=== PATIENT | female | born 1990 | race African-American/Black ===

== ENCOUNTER 2016-11-28 11:24 | Emergency (ER) | payer SELFPAY ==
[~2016-11-28] VITALS: Ht 170.2 cm; Wt 74.8 kg
[~2016-11-28 11:24] MED LIST: NAPR250T2 PO; OXYC-323 PO
[2016-11-28 11:30] VITALS: BP 121/74
[2016-11-28] MEDS ORDERED: DIPHTH,PERTUSS(ACELL),TET TOX 0.5 ML DISP.SYRIN. VAX IM ONE (11:30)
[2016-11-28] MEDS ORDERED: NEOMY/BACITR/POLYMYXIN OINT PACKET. TP ONE (11:30)
[2016-11-28] MEDS ORDERED: NAPROXEN 500 MG TABLET PO STA (11:30)
[2016-11-28] MEDS ORDERED: HYDROcodone/APAP 5/325MG 1 TAB TABLET PO ONE (11:30)
--- NOTE | 2016-11-28 12:00 | RAD ---
Exam performed:3 views right elbow and right hand 3 views. Indication: Right hand and Elbow pain after wrestling with brother last night. Date of Service:11/28/16 Comparison: None available Right hand 3 views findings: PA, oblique lateral radiographs of the hand reveal the osseous structures to be intact and well aligned. The joint spaces are well-preserved. The articular margins are smooth. No soft tissue swelling or foreign bodies detected. Impression: 1. No acute abnormality seen in the right hand End impression 3 views right elbow findings: AP, oblique and lateral radiographs of the elbow reveal the osseous structures to be intact and well aligned. The joint space is well-preserved. Evidence of fracture or dislocation is not seen. Impression: 1. No acute findings seen in the right elbow.
[2016-11-28] MEDS ORDERED: NAPR500T8 PO (12:33)
--- NOTE | 2016-11-28 12:33 | PHYS DOC ---
Past Medical History Past Medical History: No Pertinent History, Depression, Other Additional Past Medical Histor: PTSD Past Surgical History: No Surgical History Additional Past Surgical Histo: finger surgery Alcohol Use: Occasionally Drug Use: Marijuana Adult General Chief Complaint Chief Complaint: UPPER EXTREMITY INJURY HPI HPI Patient is a 26 year old female with no significant medical history who presents with right elbow pain that began yesterday while wrestling with the older brother. Patient denies any known injury. Patient is also complaining of right middle finger pain that began one or 2 weeks ago while wrestling with the brother. Review of Systems Review of Systems Constitutional: Denies fever or chills [] Eyes: Denies change in visual acuity, redness, or eye pain [] HENT: Denies nasal congestion or sore throat [] Musculoskeletal: Right elbow pain and right middle finger pain Integument: Denies rash or skin lesions [] Neurologic: Denies headache, focal weakness or sensory changes [] Endocrine: Denies polyuria or polydipsia [] Current Medications Current Medications Current Medications Medications (Trade) Dose Ordered Sig/Natanael Start Time Stop Time Status Last Admin Dose Admin Acetaminophen/ Hydrocodone Bitart (Lortab 5/325) 1 tab 1X ONCE 11/28/16 11:30 11/28/16 11:35 DC 11/28/16 11:52 1 TAB Diphtheria/ Tetanus/Acell Pertussis (Boostrix) 0.5 ml ONCE ONCE 11/28/16 11:30 11/28/16 11:35 DC Naproxen (Naprosyn) 500 mg 1X STAT 11/28/16 11:30 11/28/16 11:35 DC 11/28/16 11:52 500 MG Neomycin/ Polymyxin/ Bacitracin (Triple Antibiotic Ointment) 1 pkt 1X ONCE 11/28/16 11:30 11/28/16 11:35 DC 11/28/16 11:52 1 PKT Allergies Allergies Allergies Coded Allergies Type Severity Reaction Last Updated Verified No Known Drug Allergies 02/06/14 No Physical Exam Physical Exam Constitutional: Well developed, well nourished, no acute distress, non-toxic appearance. [] HENT: Normocephalic, atraumatic, bilateral external ears normal, oropharynx moist, no oral exudates, nose normal. [] Eyes: PERRLA, EOMI, conjunctiva normal, no discharge. [] Skin: Warm, dry, no erythema, no rash. [] Back: No tenderness, no CVA tenderness. [] Extremities: Right elbow with bruising on the medial aspect. Small amount of soft tissue swelling on the dorsal part of the right elbow. Tenderness diffusely on the dorsal part of the right elbow. Full range of motion to the right elbow though patient states is painful. Adequate plantar flexion of the subluxation of the right forearm. Right middle finger with no obvious deformity. Tenderness on palpation of the right middle finger PIP joint. Adequate flexion and extension of the right middle finger MIP PIP and DIP joints. Adequate radial sensation to the right middle finger. Cap refill less than 2 seconds the right middle finger. Sensation intact to the right middle finger. Neurologic: Alert and oriented X 3, normal motor function, normal sensory function, no focal deficits noted. [] Psychologic: Affect normal, judgement normal, mood normal. [] Current Patient Data Vital Signs Vital Signs Date Time Temp Pulse Resp B/P (MAP) Pulse Ox O2 Delivery O2 Flow Rate FiO2 11/28/16 11:52 16 Room Air 11/28/16 11:30 98.2 86 121/74 (90) 97 98.2 EKG EKG [] Radiology/Procedures Radiology/Procedures []PROCEDURE: ELBOW RIGHT 3V; HAND RIGHT 3V Exam performed:3 views right elbow and right hand 3 views. Indication: Right hand and Elbow pain after wrestling with brother last night. Date of Service:11/28/16 Comparison: None available Right hand 3 views findings: PA, oblique lateral radiographs of the hand reveal the osseous structures to be intact and well aligned. The joint spaces are well-preserved. The articular margins are smooth. No soft tissue swelling or foreign bodies detected. Impression: 1. No acute abnormality seen in the right hand End impression 3 views right elbow findings: AP, oblique and lateral radiographs of the elbow reveal the osseous structures to be intact and well aligned. The joint space is well-preserved. Evidence of fracture or dislocation is not seen. Impression: 1. No acute findings seen in the right elbow. DICTATED and SIGNED BY: HALEY SIEGEL MD DATE: 11/28/16 6718 CC: KARLI RODRIGUEZ APRN; NO PCP; CHRIS CRAIN MD ~ Course & Med Decision Making Course & Med Decision Making Pertinent Labs and Imaging studies reviewed. (See chart for details) Patient is in the ED with complaints of right middle finger pain and right elbow pain after wrestling. X-rays of the right middle finger and right elbow interpreted by radiologist are negative for any acute findings. Patient has right elbow and right middle finger sprains. She did have some bruising on the medial aspect of the right elbow. She was instructed to apply Neosporin to the area. Tetanus is up-to-date. Ice elevation encouraged if the affected extremity. Discharged with naproxen and provided orthopedic doctor for follow- up. Dragon Disclaimer Dragon Disclaimer This electronic medical record was generated, in whole or in part, using a voice recognition dictation system. Departure Departure Impression: Primary Impression: Sprain of right elbow Additional Impressions: Sprain of right middle finger Bruising Disposition: 01 HOME, SELF-CARE Condition: STABLE Referrals: NO PCP (PCP) SIMRAN LARSEN MD Follow-up with the provided orthopedic doctor in 1-2 weeks as needed Patient Instructions: Joint Sprain Additional Instructions: You were seen for right elbow and right middle finger sprain. Ice and elevate the affected extremities. Try and dangle the right elbow down, avoid cradling it because it might freeze up and become hard to move. Take the prescribed medicines as needed. Apply Neosporin to the bruised area on the elbow. Scripts Naproxen (NAPROXEN) 500 Mg Tablet.dr 1 TAB PO BID, #60 TAB 2 Refills Prov: KARLI RORDIGUEZ APRN 11/28/16 Problem Qualifiers Primary Impression: Sprain of right elbow Encounter type: initial encounter Qualified Codes: S53.401A - Unspecified sprain of right elbow, initial encounter Additional Impressions: Sprain of right middle finger Encounter type: initial encounter Sprain of finger site: interphalangeal joint Qualified Codes: S63.632A - Sprain of interphalangeal joint of right middle finger, initial encounter KARLI RODRIGUEZ APRN November 28, 2016 12:33
== END 2016-11-28 12:44 | disposition home or self-care (01) ==
LOC: ER 11:24
DX: S53.401A Unspecified sprain of right elbow, initial encounter (principal); S63.632A Sprain of interphalangeal joint of right middle finger, initial encounter; F32.9 Major depressive disorder, single episode, unspecified; F43.10 Post-traumatic stress disorder, unspecified; F12.10 Cannabis abuse, uncomplicated; X58.XXXA Exposure to other specified factors, initial encounter; Y93.72 Activity, wrestling; Y92.89 Other specified places as the place of occurrence of the external cause; Y99.8 Other external cause status
CPT/HCPCS: 73080; 73130; 99284

== ENCOUNTER 2017-01-03 20:55 | Emergency (ER) | payer SELFPAY ==
[~2017-01-03] VITALS: Ht 162.6 cm; Wt 74.8 kg
[~2017-01-03 20:55] MED LIST changes: +NAPR500T8 PO
[2017-01-03 20:58] VITALS: BP 134/67
== END 2017-01-03 21:20 | disposition left against medical advice (07) ==
LOC: ER 20:55
DX: O20.9 Hemorrhage in early pregnancy, unspecified (principal); O99.341 Other mental disorders complicating pregnancy, first trimester; F32.9 Major depressive disorder, single episode, unspecified; O99.331 Smoking (tobacco) complicating pregnancy, first trimester; O99.321 Drug use complicating pregnancy, first trimester; F12.10 Cannabis abuse, uncomplicated; Z3A.08 8 weeks gestation of pregnancy; Z53.21 Procedure and treatment not carried out due to patient leaving prior to being seen by health care provider
CPT/HCPCS: 81025

== ENCOUNTER 2017-02-08 21:16 | Emergency (ER) | payer SELFPAY ==
[~2017-02-08] VITALS: Ht 170.2 cm; Wt 77.1 kg
[2017-02-08 22:28] LABS: BILIRUBIN,URINE NEGATIVE (NEG); GLUCOSE,URINE NEGATIVE (NEG); NITRITE,URINE NEGATIVE (NEG); PH,URINE 6.5; PROTEIN,URINE NEGATIVE (NEG-TRACE); UROBILINOGEN,URINE 0.2 mg/dL (0.2 mg/dL)
[2017-02-08 22:45] LABS: BACTERIA,URINE 0 /HPF (0-FEW); RBC,URINE 0 /HPF (0-2)
[2017-02-08 22:46] LABS: SQUAMOUS EPITHELIAL CELL,UR MOD /LPF
[2017-02-08 22:47] LABS: BASO % 1 % (0-3); EOS % 1 % (0-3); HEMATOCRIT 32.6 % (36.0-47.0); HEMOGLOBIN 10.9 g/dL (12.0-15.5); LYMPH # 2.3 x10^3/uL (1.0-4.8); LYMPH % 29 % (24-48); MEAN CORPUSCULAR HEMOGLOBIN 31 pg (25-35); MEAN CORPUSCULAR HGB CONC 34 g/dL (31-37); MEAN CORPUSCULAR VOLUME 91 fL (79-100); MONO % 6 % (0-9); NEUT % 65 % (31-73); PLATELET COUNT 199 x10^3/uL (140-400); RED BLOOD COUNT 3.58 x10^6/uL (3.50-5.40); RED CELL DISTRIBUTION WIDTH 18.1 % (11.5-14.5); WHITE BLOOD COUNT 8.1 x10^3/uL (4.0-11.0)
--- NOTE | 2017-02-08 22:55 | PHYS DOC ---
Past Medical History Past Medical History: No Pertinent History, Depression, Other Additional Past Medical Histor: PTSD Past Surgical History: No Surgical History Additional Past Surgical Histo: finger surgery Alcohol Use: Occasionally Drug Use: Marijuana Adult General Chief Complaint Chief Complaint: VAGINAL BLEEDING HPI HPI Patient is a 27 year old female who presents with vaginal bleeding. Her LMP is 11/15/16 and is 12 weeks by dates. She is a G4, P3, LC3. States the spotting started yesterday at 1900 p.m. No ultrasound, no care. She denies any loss of tissue. No burning or blood in her urine. No fever or chills. Review of Systems Review of Systems Constitutional: Denies fever or chills Eyes: Denies change in visual acuity, redness, or eye pain HENT: Denies nasal congestion or sore throat Respiratory: Denies cough or shortness of breath Cardiovascular: No chest pain GI: Denies abdominal pain, nausea, vomiting, bloody stools or diarrhea : Denies dysuria or hematuria; vaginal spotting Musculoskeletal: Denies back pain or joint pain Integument: Denies rash or skin lesions Neurologic: Denies headache, focal weakness or sensory changes Allergies Allergies Allergies Coded Allergies Type Severity Reaction Last Updated Verified No Known Drug Allergies 02/06/14 No Physical Exam Physical Exam Constitutional: Well developed, well nourished, no acute distress, non-toxic appearance. HENT: Normocephalic, atraumatic, bilateral external ears normal, oropharynx moist, no oral exudates, nose normal. Eyes: PERRLA, EOMI, conjunctiva normal, no discharge. Neck: Normal range of motion, no tenderness, supple, no stridor. Cardiovascular:Heart rate regular rhythm, no murmur Lungs & Thorax: Bilateral breath sounds clear to auscultation Abdomen: Bowel sounds normal, soft, no tenderness, no masses, no pulsatile masses. Skin: Warm, dry, no erythema, no rash. Back: No tenderness, no CVA tenderness. Extremities: No tenderness, no cyanosis, no clubbing, ROM intact, no edema. Neurologic: Alert and oriented X 3, normal motor function, normal sensory function, no focal deficits noted. Psychologic: Affect normal, judgement normal, mood normal. Current Patient Data Vital Signs Vital Signs Date Time Temp Pulse Resp B/P (MAP) Pulse Ox O2 Delivery O2 Flow Rate FiO2 7/22/17 23:00 84 18 117/76 (90) 97 Room Air 02/08/17 21:52 98.4 98.4 Lab Values Laboratory Tests Test 02/08/17 21:15 02/08/17 21:53 02/08/17 22:25 POC Urine HCG, Qualitative Hcg positive (Negative) Urine Collection Type Unknown Urine Color Yellow Urine Clarity Clear Urine pH 6.5 Urine Specific [place] 1.010 Urine Protein Negative mg/dL (NEG-TRACE) Urine Glucose (UA) Negative mg/dL (NEG) Urine Ketones (Stick) Negative mg/dL (NEG) Urine Blood Negative (NEG) Urine Nitrite Negative (NEG) Urine Bilirubin Negative (NEG) Urine Urobilinogen Dipstick 0.2 mg/dL (0.2 mg/dL) Urine Leukocyte Esterase Trace (NEG) Urine RBC 0 /HPF (0-2) Urine WBC 5-10 /HPF (0-4) Urine Squamous Epithelial Cells Mod /LPF Urine Bacteria 0 /HPF (0-FEW) Urine Mucus Mod /LPF White Blood Count 8.1 x10^3/uL (4.0-11.0) Red Blood Count 3.58 x10^6/uL (3.50-5.40) Hemoglobin 10.9 g/dL (12.0-15.5) L Hematocrit 32.6 % (36.0-47.0) L Mean Corpuscular Volume 91 fL (79-100) Mean Corpuscular Hemoglobin 31 pg (25-35) Mean Corpuscular Hemoglobin Concent 34 g/dL (31-37) Red Cell Distribution Width 18.1 % (11.5-14.5) H Platelet Count 199 x10^3/uL (140-400) Neutrophils (%) (Auto) 65 % (31-73) Lymphocytes (%) (Auto) 29 % (24-48) Monocytes (%) (Auto) 6 % (0-9) Eosinophils (%) (Auto) 1 % (0-3) Basophils (%) (Auto) 1 % (0-3) Neutrophils # (Auto) 5.2 x10^3uL (1.8-7.7) Lymphocytes # (Auto) 2.3 x10^3/uL (1.0-4.8) Monocytes # (Auto) 0.5 x10^3/uL (0.0-1.1) Eosinophils # (Auto) 0.1 x10^3/uL (0.0-0.7) Basophils # (Auto) 0.0 x10^3/uL (0.0-0.2) Maternal Serum HCG Beta Subunit 28940 mIU/mL (0-5) H Laboratory Tests 02/08/17 22:25 Radiology/Procedures Radiology/Procedures [facility] [address] [place] [address] IMAGING REPORT Signed PATIENT: RAFAEL GREENFIELD ACCOUNT: [id number] : 1990 LOCATION: ER AGE: 27 SEX: F EXAM STATUS: PRE ER ORD. PHYSICIAN: MADIE ALARCON MD REASON: vag bleeding PROCEDURE: OB < 14 WKS Obstetrical ultrasound HISTORY: Vaginal spotting. FINDINGS: Uterus measures 12.1 cm longitudinal by 7.5 cm AP by 9.4 cm transverse. Gestational sac is identified. pole identified with crown-rump length of 5.3 cm which is compatible with 12 weeks 0 days. heart tones are documented with a heart rate of 1 55 bpm. Cervical length is 3.8 cm. Left maternal ovary measures 3.3 cm and is unremarkable with positive blood flow. Maternal right ovary measures 2.2 cm with positive blood flow. IMPRESSION: Single viable intrauterine is identified, with a estimated sonographic age of 12 weeks 0 days, and estimated due date of August 23, 2017. Electronically signed by: Alexandria Boles MD (02/08/2017 11:12 PM) [facility] DICTATED and SIGNED BY: ALEXANDRIA BOLES MD DATE: 02/08/17 0171 CC: MADIE ALARCON MD; NO PCP ~ Course & Med Decision Making Course & Med Decision Making Pertinent Labs and Imaging studies reviewed. (See chart for details) Attempted heart tones (she states 12 weeks) but unable to determine. Will need to have US (ordered). Blood type and cbc ordered. Quant HCG. Midnight: I was in a code and when I went back into the room she was gone. Was unable to perform Pelvic exam Dragon Disclaimer Dragon Disclaimer This electronic medical record was generated, in whole or in part, using a voice recognition dictation system. Departure Departure Impression: Primary Impression: Vaginal bleeding in Disposition: 07 AGAINST MEDICAL ADVICE Referrals: NO PCP (PCP) MADIE ALARCON MD Feb 08, 2017 22:55
[2017-02-08 23:00] VITALS: BP 117/76
--- NOTE | 2017-02-08 23:15 | RAD ---
Obstetrical ultrasound HISTORY: Vaginal spotting. FINDINGS: Uterus measures 12.1 cm longitudinal by 7.5 cm AP by 9.4 cm transverse. Gestational sac is identified. pole identified with crown-rump length of 5.3 cm which is compatible with 12 weeks 0 days. heart tones are documented with a heart rate of 1 55 bpm. Cervical length is 3.8 cm. Left maternal ovary measures 3.3 cm and is unremarkable with positive blood flow. Maternal right ovary measures 2.2 cm with positive blood flow. IMPRESSION: Single viable intrauterine is identified, with a estimated sonographic age of 12 weeks 0 days, and estimated due date of August 23, 2017. Electronically signed by: Ector Boles MD (02/08/2017 11:12 PM) [facility]
== END 2017-02-09 00:09 | disposition left against medical advice (07) ==
LOC: ER 21:16
DX: O20.9 Hemorrhage in early pregnancy, unspecified (principal); O99.321 Drug use complicating pregnancy, first trimester; F43.10 Post-traumatic stress disorder, unspecified; O99.341 Other mental disorders complicating pregnancy, first trimester; Z3A.12 12 weeks gestation of pregnancy
CPT/HCPCS: 36415; 76801; 81001; 81025; 84702; 85027; 86900; 86901; 99285-25

== ENCOUNTER 2017-02-22 04:20 | Emergency (ER) | payer SELFPAY ==
[~2017-02-22] VITALS: Ht 167.6 cm; Wt 74.8 kg
[2017-02-22 04:47] VITALS: BP 132/72
[2017-02-22 04:50] LABS: BILIRUBIN,URINE NEGATIVE (NEG); GLUCOSE,URINE NEGATIVE (NEG); NITRITE,URINE NEGATIVE (NEG); PROTEIN,URINE 100 mg/dL (NEG-TRACE)
--- NOTE | 2017-02-22 04:51 | PHYS DOC ---
Past Medical History Past Medical History: No Pertinent History, Depression, Other Additional Past Medical Histor: PTSD Past Surgical History: No Surgical History Additional Past Surgical Histo: finger surgery Alcohol Use: Occasionally Drug Use: Marijuana Adult General Chief Complaint Chief Complaint: VAGINAL BLEEDING HPI HPI Patient is a 27 year old F who presents with vaginal bleeding. Patient is approximately 14 weeks' is a middle-aged comes in with heavy vaginal bleeding that started this morning. Patient went to some lower abdominal cramping. Patient denies any nausea/vomiting/diarrhea. Patient denies any fevers. Patient denies any dysuria. Patient has no other complaints. Patient has had no care at this point. Review of Systems Review of Systems GEN: Denies fevers, chills, sweats HEENT: Denies blurred vision, sore throat CV: Denies chest pain RESP: Denies shortness of air, cough GI: Denies n/v/d : Vaginal bleeding NEURO: Denies confusion, dizziness MSK: Denies weakness, joint pain/swelling Current Medications Current Medications Current Medications Medications (Trade) Dose Ordered Sig/Natanael Start Time Stop Time Status Last Admin Dose Admin Acetaminophen (Tylenol) 1,000 mg 1X ONCE 02/22/17 06:00 02/22/17 06:01 DC 02/22/17 05:40 1,000 MG Allergies Allergies Allergies Coded Allergies Type Severity Reaction Last Updated Verified No Known Drug Allergies 02/06/14 No Physical Exam Physical Exam GEN.: No apparent distress. Alert and oriented. HEENT: Head is normocephalic, atraumatic NECK: Supple. LUNGS: CTAB. HEART: RRR, S1, S2 present. Peripheral pulses intact ABDOMEN: Soft, lower abdominal tenderness palpation. Positive bowel sounds. : Patient deferred EXTREMITIES: Without any cyanosis. NEUROLOGIC: Normal speech, normal tone PSYCHIATRIC: Normal affect, normal mood. SKIN: No ulcerations Current Patient Data Vital Signs Vital Signs Date Time Temp Pulse Resp B/P (MAP) Pulse Ox O2 Delivery O2 Flow Rate FiO2 02/22/17 04:47 98.1 106 16 132/72 (92) 98 Room Air 98.1 Lab Values Laboratory Tests Test 02/22/17 04:27 02/22/17 05:00 Urine Collection Type Unknown Urine Color Red Urine Clarity Cloudy Urine pH 6.0 Urine Specific [place] 1.025 Urine Protein 100 mg/dL (NEG-TRACE) Urine Glucose (UA) Negative mg/dL (NEG) Urine Ketones (Stick) Negative mg/dL (NEG) Urine Blood Large (NEG) Urine Nitrite Negative (NEG) Urine Bilirubin Negative (NEG) Urine Urobilinogen Dipstick 1.0 mg/dL (0.2 mg/dL) Urine Leukocyte Esterase Small (NEG) Urine RBC Tntc /HPF (0-2) Urine WBC 5-10 /HPF (0-4) Urine Squamous Epithelial Cells Mod /LPF Urine Bacteria Few /HPF (0-FEW) Urine Mucus Marked /LPF Urine Test Positive (NEG) White Blood Count 10.2 x10^3/uL (4.0-11.0) Red Blood Count 3.70 x10^6/uL (3.50-5.40) Hemoglobin 11.4 g/dL (12.0-15.5) L Hematocrit 33.4 % (36.0-47.0) L Mean Corpuscular Volume 91 fL (79-100) Mean Corpuscular Hemoglobin 31 pg (25-35) Mean Corpuscular Hemoglobin Concent 34 g/dL (31-37) Red Cell Distribution Width 17.8 % (11.5-14.5) H Platelet Count 244 x10^3/uL (140-400) Neutrophils (%) (Auto) 68 % (31-73) Lymphocytes (%) (Auto) 27 % (24-48) Monocytes (%) (Auto) 5 % (0-9) Eosinophils (%) (Auto) 0 % (0-3) Basophils (%) (Auto) 0 % (0-3) Neutrophils # (Auto) 6.9 x10^3uL (1.8-7.7) Lymphocytes # (Auto) 2.7 x10^3/uL (1.0-4.8) Monocytes # (Auto) 0.5 x10^3/uL (0.0-1.1) Eosinophils # (Auto) 0.0 x10^3/uL (0.0-0.7) Basophils # (Auto) 0.0 x10^3/uL (0.0-0.2) Maternal Serum HCG Beta Subunit 93618 mIU/mL (0-5) H Sodium Level 141 mmol/L (136-145) Potassium Level 3.6 mmol/L (3.5-5.1) Chloride Level 105 mmol/L (98-107) Carbon Dioxide Level 24 mmol/L (21-32) Anion Gap 12 (6-14) Blood Urea Nitrogen 8 mg/dL (7-20) Creatinine 0.8 mg/dL (0.6-1.0) Estimated GFR (Cockcroft-Gault) 104.9 BUN/Creatinine Ratio 10 (6-20) Glucose Level 88 mg/dL (70-99) Calcium Level 8.6 mg/dL (8.5-10.1) Total Bilirubin 0.1 mg/dL (0.2-1.0) L Aspartate Amino Transferase (AST) 16 U/L (15-37) Alanine Aminotransferase (ALT) 16 U/L (14-59) Alkaline Phosphatase 63 U/L (46-116) Total Protein 7.3 g/dL (6.4-8.2) Albumin 3.3 g/dL (3.4-5.0) L Albumin/Globulin Ratio 0.8 (1.0-1.7) L Laboratory Tests 02/22/17 05:00 Laboratory Tests 02/22/17 05:00 EKG EKG [] Radiology/Procedures Radiology/Procedures [] Course & Med Decision Making Course & Med Decision Making Pertinent Labs and Imaging studies reviewed. (See chart for details) 0609: Transitional care to Dr. De Leon who will follow-up on the ultrasound if no demise patient can be discharged home with pelvic rest and short term follow-up with [facility] IMAGING REPORT Signed PATIENT: RAFAEL GREENFIELD ACCOUNT: [id number] : 1990 LOCATION: ER AGE: 27 SEX: F EXAM STATUS: REG ER ORD. PHYSICIAN: LAUREN KAPLAN DO REASON: vag bleeding PROCEDURE: OB > 14 WKS W/TV Obstetric ultrasound HISTORY: female with vaginal bleeding. COMPARISON: Obstetric ultrasound February 08, 2017 TECHNIQUE: Transabdominal and transvaginal transducers with grayscale, M-mode Doppler and color Doppler sonography. FINDINGS: Transabdominal imaging demonstrates uterus measuring 15.1 x 9.2 x 10.9 cm with a single intrauterine fetus. heart rate 162 bpm. [place]-rump length 8.1 cm estimating sonographic gestational age 14 weeks 0 days and date of delivery August 23, 2017. Maternal ovaries not visualized. Transvaginal imaging demonstrates cervical length 4.1 cm no funneling. Fetus in cephalic position. Anterior placenta with marginal placenta previa. No subchorionic hemorrhage or retroplacental hematoma documented. Maternal ovaries not visualized due to shadowing. anatomic evaluation was not performed. Trace fluid in the cul-de-sac. IMPRESSION: Single living intrauterine with sonographic gestational age of 14 weeks 0 days. Anterior placenta with marginal placenta previa. Cervical length 4.1 cm without funneling. Electronically signed by: Andrea Garg MD (02/22/2017 6:10 AM) [facility] DICTATED and SIGNED BY: ANDREA GARG MD DATE: 02/22/17605 CC: NELL DE LEON MD; NO PCP; LAUREN KAPLAN DO ~ [] Was turned over to me awaiting ultrasound of the pelvis to evaluate intrauterine . Ultram as returned as well as a blood type which is B+ she is Rh+ is well she does not need broken. Ultrasound demonstrates a single intrauterine with a gestational age of approximately 14 weeks with significant heart tones at 162. Patient is not actively bleeding belly pain is minimum patient will be given thorough precautions for both bleeding and expectations of progressive development. Encouraging her to follow-up with [facility] in the future. Patient given instructions to use [id number] Tylenol (Zofran for nausea necessary. I reviewed her nursing notes his documentation of care as well as's vital signs and laboratory work which are really unremarkable at this time. Impression: Abdominal pain, threatened miscarriage, Disposition: [facility] follow-up PCP referral. Dragon Disclaimer Dragon Disclaimer This electronic medical record was generated, in whole or in part, using a voice recognition dictation system. Departure Departure Impression: Primary Impression: Vaginal bleeding in Additional Impression: Threatened miscarriage Disposition: 01 HOME, SELF-CARE Condition: IMPROVED Referrals: NO PCP (PCP) Patient Instructions: Threatened Miscarriage Additional Instructions: Please follow-up with your local [facility] manage the rest her . Please return for any new or increasing abdominal pain, vaginal bleeding greater than 1 pad per hour for 4-6 hours or if he get lightheaded and dizzy with a loss of blood. Please return if you have any questions or concerns about your care. Scripts Ondansetron (ZOFRAN ODT) 4 Mg Tab.rapdis 4 MG PO BID Y for NAUSEA/VOMITING for 28 Days, #56 TAB Prov: NELL DE LEON MD 02/22/17 Acetaminophen (TYLENOL) 325 Mg Tablet 1-2 TAB.CHEW PO QID, #60 TAB 2 Refills Prov: NELL DE LEON MD 02/22/17 Problem Qualifiers LAUREN KAPLAN DO Feb 22, 2017 04:50 NELL DE LEON MD Feb 22, 2017 06:31
[2017-02-22 04:54] LABS: NEG OBC UR NEG; POS OBC UR POS
[2017-02-22 05:04] LABS: BACTERIA,URINE FEW /HPF (0-FEW); RBC,URINE TNTC /HPF (0-2); SQUAMOUS EPITHELIAL CELL,UR MOD /LPF
[2017-02-22 05:19] LABS: BASO % 0 % (0-3); EOS % 0 % (0-3); HEMATOCRIT 33.4 % (36.0-47.0); HEMOGLOBIN 11.4 g/dL (12.0-15.5); LYMPH # 2.7 x10^3/uL (1.0-4.8); LYMPH % 27 % (24-48); MEAN CORPUSCULAR HEMOGLOBIN 31 pg (25-35); MEAN CORPUSCULAR HGB CONC 34 g/dL (31-37); MEAN CORPUSCULAR VOLUME 91 fL (79-100); MONO % 5 % (0-9); NEUT % 68 % (31-73); PLATELET COUNT 244 x10^3/uL (140-400); RED CELL DISTRIBUTION WIDTH 17.8 % (11.5-14.5); WHITE BLOOD COUNT 10.2 x10^3/uL (4.0-11.0)
[2017-02-22 05:26] LABS: CALCIUM 8.6 mg/dL (8.5-10.1); CREATININE 0.8 mg/dL (0.6-1.0); GFR 104.9; POTASSIUM 3.6 mmol/L (3.5-5.1)
[2017-02-22 05:33] LABS: ALBUMIN 3.3 g/dL (3.4-5.0); ALBUMIN/GLOBULIN RATIO 0.8 (1.0-1.7); TOTAL BILIRUBIN 0.1 mg/dL (0.2-1.0); TOTAL PROTEIN 7.3 g/dL (6.4-8.2)
[2017-02-22] MEDS ORDERED: ACETAMINOPHEN 500 MG TABLET PO ONE (06:00)
--- NOTE | 2017-02-22 06:13 | RAD ---
Obstetric ultrasound HISTORY: female with vaginal bleeding. COMPARISON: Obstetric ultrasound February 08, 2017 TECHNIQUE: Transabdominal and transvaginal transducers with grayscale, M-mode Doppler and color Doppler sonography. FINDINGS: Transabdominal imaging demonstrates uterus measuring 15.1 x 9.2 x 10.9 cm with a single intrauterine fetus. heart rate 162 bpm. [place]-rump length 8.1 cm estimating sonographic gestational age 14 weeks 0 days and date of delivery August 23, 2017. Maternal ovaries not visualized. Transvaginal imaging demonstrates cervical length 4.1 cm no funneling. Fetus in cephalic position. Anterior placenta with marginal placenta previa. No subchorionic hemorrhage or retroplacental hematoma documented. Maternal ovaries not visualized due to shadowing. anatomic evaluation was not performed. Trace fluid in the cul-de-sac. IMPRESSION: Single living intrauterine with sonographic gestational age of 14 weeks 0 days. Anterior placenta with marginal placenta previa. Cervical length 4.1 cm without funneling. Electronically signed by: David Garg MD (02/22/2017 6:10 AM) [facility]
[2017-02-22] MEDS ORDERED: ONDA4TAB10 PO (06:31)
[2017-02-22] MEDS ORDERED: ACET325T9 PO (06:31)
== END 2017-02-22 06:56 | disposition home or self-care (01) ==
LOC: ER 04:20
DX: O20.0 Threatened abortion (principal); O99.341 Other mental disorders complicating pregnancy, first trimester; F43.10 Post-traumatic stress disorder, unspecified; F32.9 Major depressive disorder, single episode, unspecified; O99.321 Drug use complicating pregnancy, first trimester; F12.10 Cannabis abuse, uncomplicated; Z3A.14 14 weeks gestation of pregnancy
CPT/HCPCS: 36415; 76805; 76817; 80053; 81001; 81025; 84702; 85027; 86900; 86901; 87086; 99285-25

== ENCOUNTER 2017-03-10 12:17 | Emergency (ER) | payer SELFPAY ==
[~2017-03-10] VITALS: Ht 170.2 cm; Wt 74.8 kg
[~2017-03-10 12:17] MED LIST changes: +ACET325T9 PO; +ONDA4TAB10 PO
[2017-03-10 13:32] LABS: BASO % 1 % (0-3); EOS % 1 % (0-3); HEMATOCRIT 30.9 % (36.0-47.0); HEMOGLOBIN 10.6 g/dL (12.0-15.5); LYMPH # 1.4 x10^3/uL (1.0-4.8); LYMPH % 21 % (24-48); MEAN CORPUSCULAR HEMOGLOBIN 32 pg (25-35); MEAN CORPUSCULAR HGB CONC 34 g/dL (31-37); MEAN CORPUSCULAR VOLUME 92 fL (79-100); MONO % 9 % (0-9); NEUT % 68 % (31-73); PLATELET COUNT 212 x10^3/uL (140-400); RED BLOOD COUNT 3.35 x10^6/uL (3.50-5.40); RED CELL DISTRIBUTION WIDTH 15.7 % (11.5-14.5); WHITE BLOOD COUNT 6.7 x10^3/uL (4.0-11.0)
[2017-03-10 13:39] LABS: BILIRUBIN,URINE NEGATIVE (NEG); GLUCOSE,URINE NEGATIVE (NEG); NITRITE,URINE NEGATIVE (NEG); PROTEIN,URINE NEGATIVE (NEG-TRACE)
[2017-03-10 13:43] LABS: BACTERIA,URINE 0 /HPF (0-FEW); RBC,URINE 0 /HPF (0-2); SQUAMOUS EPITHELIAL CELL,UR FEW /LPF; WBC,URINE 0 /HPF (0-4)
[2017-03-10 14:24] VITALS: BP 98/53
--- NOTE | 2017-03-10 14:29 | RAD ---
Obstetrical ultrasound, 03/10/2017: History: , bleeding Transabdominal scans were obtained. Translabial scans were also obtained for optimal demonstration of the cervix. Comparison is made to a study from 02/22/2017. There is a single intrauterine fetus in a variable orientation. The biparietal diameter measures 3.5 cm compatible with a gestational age of 16-17 weeks. This corresponds well to the other measurements and yields a sonographic EDC of 08/23/2017. This is the same EDC as established on the previous study of 02/22/2017. activity and heart motion are present. The heart rate is 162 bpm. There is an abnormal hypoechoic process present along the anterior aspect of the gestational sac and the appearance is that of a large subchorionic hemorrhage. It measures approximately 10 x 11 x 2.5 cm. The placenta lies posteriorly. Its inferior tip lies near the internal cervical os but does not cover the os. The appearance suggests a marginal placenta previa. The cervix was best demonstrated on the translabial views. The cervix measures approximately 2.9 cm in length. The endocervical canal is hypoechoic compatible with the presence of amniotic fluid and/or blood. IMPRESSION: 1. Single viable intrauterine fetus of 16-17 weeks gestational age which has demonstrated normal interval growth since previous studies. 2. Large subchorionic hemorrhage. 3. Marginal placenta previa. 4. The cervical length is now at the lower limits of normal with fluid extending into the endocervical canal.
--- NOTE | 2017-03-10 15:00 | PHYS DOC ---
Past Medical History Past Medical History: Depression, Other Additional Past Medical Histor: PTSD Past Surgical History: Other Additional Past Surgical Histo: finger surgery Alcohol Use: Occasionally Drug Use: None Adult General Chief Complaint Chief Complaint: VAGINAL BLEEDING HPI HPI Patient is a 27 year old female who presents here today secondary to vaginal bleeding. Patient is approximately 16 weeks by date. Patient was seen here on February 08 and was evaluated for vaginal bleeding at that time was found to have an IUP 14 weeks by ultrasound. Patient reports that since she's been here since been having vaginal spotting every day. She reports at 3 AM today she had some increased bleeding. Patient reports that she passed a small clot that she wasn' t sure if it was tissue or not. Patient reports that she is back to just vaginal spotting at the current time. Patient denies any abdominal discomfort at this time. Patient is 4 para 3. Patient has any hypertension diabetes liver longer kidney problems. Patient has had no abdominal or chest surgeries. Patient reports she does smoke occasional alcohol and no drugs. Patient reports that she has not had an silver recovery operator during this yet secondary to insurance reasons. Patient reports that she was here to her prior visit she started applying for her health insurance however she has not gotten approved. Patient reports that one set is approved that she will follow-up with OB. Patient denies any other symptomatology at this time. Patient has any fevers shakes chills nausea vomiting diarrhea chest pain shortness of breath cough cold rhinorrhea. Patient has a dysuria frequency or urgency. Patient's physical exam the ER was significant for mild tenderness to palpation to her periumbilical area at her uterine fundus. Patient's pelvic exam revealed closed os with a normal amount of dried blood. Patient's exam was unremarkable otherwise nontender. Patient's vital signs remained stable in the ED. Patient's heart rate has been 60-70. Patient's blood pressure is been stable. Ultrasound: Impression single viable intrauterine fetus of 16-17 weeks gestation. Large subchorionic hemorrhage. Marginal placenta previa. Review of systems: Constitutional: Denies fever or chills Eyes: Denies change in visual acuity, redness, or eye pain HENT: Denies nasal congestion or sore throat All other review systems are negative except as documented in the history of present illness portion. Physical exam: Constitutional: Well developed, well nourished, no acute distress, non-toxic appearance. HENT: Normocephalic, atraumatic, bilateral external ears normal, nose normal. Eyes: EOMI, conjunctiva normal, no discharge. Neck: Normal range of motion, no tenderness, supple, no stridor. Cardiovascular:Heart rate regular rhythm Lungs & Thorax: Bilateral breath sounds clear to auscultation no respiratory distress Abdomen: Bowel sounds normal, soft, no tenderness, no masses, no pulsatile masses. Skin: Warm, dry, no erythema, no rash. Back: No tenderness, no CVA tenderness. Extremities: No tenderness, no cyanosis, no clubbing, ROM intact, no edema. Neurologic: Alert and oriented X 3, normal motor function, normal sensory function, no focal deficits noted. Psychologic: Affect normal, judgement normal, mood normal. Assessment and plan This is a 27-year-old female who presents here today with vaginal bleeding. Patient's ultrasound was remarkable for large subchorionic hemorrhage. Patient' s marginal placenta previa. Patient is 16-17 weeks gestational age with a live IUP. I discussed the entirety of the patient's lab results and the ultrasound with the patient. I discussed the case with Dr. Kee her silver recovery operator on-call she has agreed to assist us with outpatient follow-up for this patient. Patient was instructed to call Dr. Kee's office after being discharged from here for an appointment to be seen as soon as possible for reevaluation. Patient will need to be care for her current . Patient's clinically hemodynamically stable despite for discharged home. Return precautions been reviewed with the patient. Allergies Allergies Allergies Coded Allergies Type Severity Reaction Last Updated Verified No Known Drug Allergies 02/06/14 No Current Patient Data Vital Signs Vital Signs Date Time Temp Pulse Resp B/P (MAP) Pulse Ox O2 Delivery O2 Flow Rate FiO2 03/10/17 14:24 58 16 98/53 (68) 98 Room Air 03/10/17 12:53 97.9 97.9 Lab Values Laboratory Tests Test 03/10/17 12:10 03/10/17 12:59 03/10/17 13:21 POC Urine HCG, Qualitative Hcg positive (Negative) Urine Collection Type Unknown Urine Color Nya Urine Clarity Clear Urine pH 7.0 Urine Specific [place] 1.025 Urine Protein Negative mg/dL (NEG-TRACE) Urine Glucose (UA) Negative mg/dL (NEG) Urine Ketones (Stick) Trace mg/dL (NEG) Urine Blood Negative (NEG) Urine Nitrite Negative (NEG) Urine Bilirubin Negative (NEG) Urine Urobilinogen Dipstick 1.0 mg/dL (0.2 mg/dL) Urine Leukocyte Esterase Small (NEG) Urine RBC 0 /HPF (0-2) Urine WBC 0 /HPF (0-4) Urine Squamous Epithelial Cells Few /LPF Urine Bacteria 0 /HPF (0-FEW) Urine Mucus Slight /LPF White Blood Count 6.7 x10^3/uL (4.0-11.0) Red Blood Count 3.35 x10^6/uL (3.50-5.40) L Hemoglobin 10.6 g/dL (12.0-15.5) L Hematocrit 30.9 % (36.0-47.0) L Mean Corpuscular Volume 92 fL (79-100) Mean Corpuscular Hemoglobin 32 pg (25-35) Mean Corpuscular Hemoglobin Concent 34 g/dL (31-37) Red Cell Distribution Width 15.7 % (11.5-14.5) H Platelet Count 212 x10^3/uL (140-400) Neutrophils (%) (Auto) 68 % (31-73) Lymphocytes (%) (Auto) 21 % (24-48) L Monocytes (%) (Auto) 9 % (0-9) Eosinophils (%) (Auto) 1 % (0-3) Basophils (%) (Auto) 1 % (0-3) Neutrophils # (Auto) 4.5 x10^3uL (1.8-7.7) Lymphocytes # (Auto) 1.4 x10^3/uL (1.0-4.8) Monocytes # (Auto) 0.6 x10^3/uL (0.0-1.1) Eosinophils # (Auto) 0.1 x10^3/uL (0.0-0.7) Basophils # (Auto) 0.0 x10^3/uL (0.0-0.2) Maternal Serum HCG Beta Subunit 58610 mIU/mL (0-5) H Laboratory Tests 03/10/17 13:21 EKG EKG [] Radiology/Procedures Radiology/Procedures [] Course & Med Decision Making Course & Med Decision Making Pertinent Labs and Imaging studies reviewed. (See chart for details) [] Dragon Disclaimer Dragon Disclaimer This electronic medical record was generated, in whole or in part, using a voice recognition dictation system. Departure Departure Impression: Primary Impression: Vaginal bleeding in Additional Impression: Threatened miscarriage Disposition: HOME, SELF-CARE Condition: IMPROVED Referrals: NO PCP (PCP) LI GHOSH MD Patient Instructions: Threatened Miscarriage Additional Instructions: Thank you for allowing us to participate in your care today. Followup with your primary care physician in 3 days if your symptoms do not improve. Call your Primary Doctor tomorrow and inform them of your visit today. If you do not have a primary care provider you can ask for a list of our primary care providers. Return to the emergency department you have any new or concerning findings. This should be evaluated by the primary care physician and any necessary consulting services for continued management within a few days after discharge. Return to emergency room if you have any new or concerning symptoms including but not limited to fever, chills, nausea, vomiting, intractable pain, any new rashes, chest pain, shortness of air, uncontrolled bleeding, difficulty breathing, and/or vision loss. You may have been prescribed medication that can change in your level of thinking and ability to operate machinery. These medications include hydrocodone and Ativan. Also, Benadryl has been known to do this as well. Be sure to check with your pharmacist and ask if the medications you've prescribed can affect your level of consciousness. I recommend not operating heavy machinery or driving while on medication such as these. Please call Dr. Kee as soon as possible for appropriate follow-up instructions and follow-up appointment. Return the ER if you have any concerns prior to your appointment with Dr. Kee. Return the ER if you're bleeding more than 2-3 pads per hour for more than 2-3 hours in a row. Return the ER for any dizziness concerning abdominal pain or any other symptoms your word about. Problem Qualifiers LARISA BARAHONA MD Mar 10, 2017 15:00
== END 2017-03-10 15:11 | disposition home or self-care (01) ==
LOC: ER 12:17
DX: O20.0 Threatened abortion (principal); O99.342 Other mental disorders complicating pregnancy, second trimester; F32.9 Major depressive disorder, single episode, unspecified; F43.10 Post-traumatic stress disorder, unspecified; Z3A.16 16 weeks gestation of pregnancy
CPT/HCPCS: 36415; 76801; 81001; 81025; 84702; 85025; 86900; 86901; 87086; 99285-25

== ENCOUNTER 2017-07-20 17:59 | Observation (INO) | payer OTHER ==
[2017-07-20 19:03] LABS: BARBITURATES NEG (NEG); BENZODIAZEPINES NEG (NEG); CANNABINOIDS NEG (NEG); COCAINE POS (NEG); METHADONE NEG (NEG); OPIATES POS (NEG); PHENCYCLIDINE NEG (NEG)
[2017-07-20 19:05] LABS: AMPHETAMINE/METHAMPHETAMINE NEG (NEG); ETHANOL, URINE NEG (NEG)
[2017-07-20] MEDS: IV RINGERS,LACTATED 1000ML 1,000 ML IV (19:22)
[2017-07-20] MEDS: hydrOXYzine PAMOATE 25 MG CAPSULE PO (20:05)
[2017-07-20 23:10] LABS: BILIRUBIN,URINE SMALL (NEG); CLARITY,URINE TURBID; GLUCOSE,URINE NEGATIVE (NEG); NITRITE,URINE NEGATIVE (NEG); PROTEIN,URINE >=300 mg/dL (NEG-TRACE)
[2017-07-20 23:11] LABS: BACTERIA,URINE MANY /HPF (0-FEW); COLOR,URINE DK YELLOW; SQUAMOUS EPITHELIAL CELL,UR MANY /LPF; WBC,URINE >40 /HPF (0-4)
== END 2017-07-20 21:37 | disposition home or self-care (01) ==
LOC: 3 SO LND 17:59
DX: O26.893 Other specified pregnancy related conditions, third trimester (principal); M54.9 Dorsalgia, unspecified; Z3A.34 34 weeks gestation of pregnancy
CPT/HCPCS: 80307; 81001; 87086; 87186; 96360; 96361; G0378; G0379; J7120; Q0177

== ENCOUNTER 2017-08-20 06:02 | Inpatient (IN) | payer OTHER ==
[2017-08-20] MEDS ORDERED: OXYTOCIN 30 UNIT/500 ML PREMIX 500 ML IV (06:26)
[2017-08-20] MEDS ORDERED: TERBUTALINE 1 MG/ML VIAL. SQ (06:45)
[2017-08-20] MEDS ORDERED: LIDOCAINE 1% PF 30 ML VIAL. INJ (06:45)
[2017-08-20] MEDS ORDERED: 0.9 % SODIUM CHLORIDE 10 ML DISP.SYRIN. IV (06:45)
[2017-08-20 08:27] LABS: AMPHETAMINE/METHAMPHETAMINE NEG (NEG); BARBITURATES NEG (NEG); BENZODIAZEPINES NEG (NEG); CANNABINOIDS NEG (NEG); COCAINE NEG (NEG); METHADONE NEG (NEG); OPIATES POS (NEG); PHENCYCLIDINE NEG (NEG)
[2017-08-20 08:28] LABS: ETHANOL, URINE NEG (NEG)
[2017-08-20] MEDS: OXYTOCIN 30 UNIT/500 ML PREMIX 500 ML IV (09:25)
[2017-08-20] MEDS: IBUPROFEN 600 MG TABLET. PO (09:25)
[2017-08-20] MEDS: IV RINGERS,LACTATED 1000ML 1,000 ML IV (09:26)
[2017-08-20 12:09] LABS: HEMATOCRIT 26.1 % (36.0-47.0); HEMOGLOBIN 8.7 g/dL (12.0-15.5); MEAN CORPUSCULAR HEMOGLOBIN 30 pg (25-35); MEAN CORPUSCULAR HGB CONC 33 g/dL (31-37); MEAN CORPUSCULAR VOLUME 89 fL (79-100); PLATELET COUNT 234 x10^3/uL (140-400); RED BLOOD COUNT 2.94 x10^6/uL (3.50-5.40); RED CELL DISTRIBUTION WIDTH 14.6 % (11.5-14.5); WHITE BLOOD COUNT 11.1 x10^3/uL (4.0-11.0)
[2017-08-20] MEDS: IBUPROFEN 800 MG TABLET. PO (18:23)
[2017-08-21 06:30] LABS: ADD MAN DIFF? NO
[2017-08-21 06:40] LABS: BASO # 0.1 x10^3/uL (0.0-0.2); BASO % 1 % (0-3); EOS # 0.1 x10^3/uL (0.0-0.7); EOS % 1 % (0-3); HEMATOCRIT 25.9 % (36.0-47.0); HEMOGLOBIN 8.6 g/dL (12.0-15.5); LYMPH # 2.6 x10^3/uL (1.0-4.8); LYMPH % 29 % (24-48); MEAN CORPUSCULAR HEMOGLOBIN 30 pg (25-35); MEAN CORPUSCULAR HGB CONC 33 g/dL (31-37); MEAN CORPUSCULAR VOLUME 90 fL (79-100); MONO # 0.7 x10^3/uL (0.0-1.1); MONO % 8 % (0-9); NEUT # 5.6 x10^3uL (1.8-7.7); NEUT % 62 % (31-73); PLATELET COUNT 232 x10^3/uL (140-400); RED BLOOD COUNT 2.88 x10^6/uL (3.50-5.40); RED CELL DISTRIBUTION WIDTH 14.8 % (11.5-14.5); WHITE BLOOD COUNT 9.1 x10^3/uL (4.0-11.0)
[2017-08-21] MEDS: DOCUSATE SODIUM 100 MG CAPSULE. PO (08:10)
[2017-08-21] MEDS: FERROUS SULFATE 325 MG TABLET. PO ×2 (08:10→11:30)
[2017-08-21] MEDS: ACETAMINOPHEN 325 MG TABLET. PO ×2 (08:10→14:36)
[2017-08-22] MEDS: ACETAMINOPHEN 325 MG TABLET. PO (05:45)
[2017-08-22] MEDS: FERROUS SULFATE 325 MG TABLET. PO (09:11)
[2017-08-22] MEDS: DOCUSATE SODIUM 100 MG CAPSULE. PO (09:11)
[2017-08-22] MEDS: IBUPROFEN 800 MG TABLET. PO (13:37)
== END 2017-08-22 15:25 | disposition home or self-care (01) | DRG 775 ==
LOC: 3 SO LND 06:02 → 3 NORTH 09:30
PROC: 10E0XZZ Delivery of Products of Conception, External Approach (ICD-10-PCS; principal; 2017-08-20)
DX: O62.3 Precipitate labor (principal); O99.324 Drug use complicating childbirth; F11.90 Opioid use, unspecified, uncomplicated; O69.89X0 Labor and delivery complicated by other cord complications, not applicable or unspecified; Z37.0 Single live birth; Z3A.39 39 weeks gestation of pregnancy
CPT/HCPCS: 36415; 80307; 85025; 85027; 86850; 86900; 86901; 87086; J2590; J7120

== ENCOUNTER 2018-11-14 20:03 | Emergency (ER) | payer SELFPAY ==
[~2018-11-14] VITALS: Ht 170.2 cm; Wt 63.5 kg
[~2018-11-14 20:03] MED LIST changes: +HYDR-3164 PO; +NAPR-514 PO; -NAPR250T2 PO; +NAPR250T6 PO; -OXYC-323 PO; +OXYC1TAB15 PO
[2018-11-14 20:15] VITALS: BP 123/59
[2018-11-14] MEDS ORDERED: LIDOCAINE 1% PF 30 ML VIAL. INJ ONE (20:30)
--- NOTE | 2018-11-14 21:45 | RAD ---
Examination: HAND RIGHT 3V History: PUNCHED GLASS BOOK CASE. MULTIPLE LACERATIONS Comparison/Correlation: 11/28/2016 right hand 3 view x-ray exam Findings: Total 3 images of the right hand were obtained by portable technique. Bony structures are intact. No fracture or bony destruction. Soft tissue swelling about the third digit proximal phalanx is noted particularly at the lateral aspect. Punctate linear density on the PA view is present in this region of soft tissue but may be artifactual. Possibility of foreign body is not entirely excluded. Impression: Soft tissue swelling at the medial aspect of the third digit proximal interphalangeal joint. Punctate linear density may be artifactual or may represent a punctate radiopaque foreign body. Electronically signed by: Theo Cervantes MD (11/14/2018 9:41 PM) [facility]
[2018-11-14] MEDS ORDERED: NAPROXEN 500 MG TABLET PO ONE (22:30)
[2018-11-14] MEDS ORDERED: HYDROcodone/APAP 5/325MG 1 TAB TABLET PO ONE (22:30)
[2018-11-14] MEDS ORDERED: NEOMY/BACITR/POLYMYXIN OINT PACKET. TP ONE (23:00)
[2018-11-14] MEDS ORDERED: HYDR-3164 PO (23:02)
[2018-11-14] MEDS ORDERED: CEPH500T PO (23:02)
--- NOTE | 2018-11-14 23:03 | PHYS DOC ---
Past Medical History Past Medical History: Depression, Other Additional Past Medical Histor: PTSD Past Surgical History: Other Additional Past Surgical Histo: finger surgery Alcohol Use: Occasionally Drug Use: None Adult General Chief Complaint Chief Complaint: LACERATION/AVULSION HPI HPI Patient is a 28 year old female who presents to the ED today complaining of 10 out of 10 right hand pain that began early this morning after punching a mirror at 2 AM while drunk because she was upset. Patient states the pain is worse around the knuckles patient on range of motion. Patient is right-handed Review of Systems Review of Systems Constitutional: Denies fever or chills [] Musculoskeletal: Reports right hand injury Integument: Denies rash or skin lesions [] Neurologic: Denies headache, focal weakness or sensory changes [] All other systems were reviewed and found to be within normal limits, except as documented in this note. Current Medications Current Medications Current Medications Medications (Trade) Dose Ordered Sig/Natanael Start Time Stop Time Status Last Admin Dose Admin Acetaminophen/ Hydrocodone Bitart (Lortab 5/325) 2 tab 1X ONCE 11/14/18 22:30 11/14/18 22:31 DC Lidocaine HCl (Xylocaine 1% Pf 30ml Vial) 30 ml 1X ONCE 11/14/18 20:30 11/14/18 20:31 DC Naproxen (Naprosyn) 500 mg 1X ONCE 11/14/18 22:30 11/14/18 22:31 DC Neomycin/ Polymyxin/ Bacitracin (Triple Antibiotic Ointment) 1 pkt 1X ONCE 11/14/18 23:00 11/14/18 23:01 Allergies Allergies Allergies Coded Allergies Type Severity Reaction Last Updated Verified No Known Drug Allergies 02/06/14 No Physical Exam Physical Exam Constitutional: Well developed, well nourished, no acute distress, non-toxic appearance. [] Skin: Warm, dry, no erythema, no rash. [] Back: No tenderness, no CVA tenderness. [] Extremities: Right dorsal hand with mild soft tissue swelling, there is a laceration approximately 4 cm long from the right ring finger knuckle to the webspace between the right ring finger and middle finger, is also another laceration on the right middle finger radial aspect of the PIP joint approximately 1 cm long. There is no obvious tendon involvement in any of this lacerations, the laceration appeared old. Adequate radial, medial, ulnar sensation to the right hand and fingers. +2 right radial pulse. Cap refill less than 2 seconds the right fingers. Slightly Limited range of motion to the right fingers due to pain. Neurologic: Alert and oriented X 3, normal motor function, normal sensory function, no focal deficits noted. [] Psychologic: Affect normal, judgement normal, mood normal. [] Current Patient Data Vital Signs Vital Signs Date Time Temp Pulse Resp B/P (MAP) Pulse Ox O2 Delivery O2 Flow Rate FiO2 11/14/18 20:15 98.1 69 20 123/59 (80) 100 Room Air 98.1 EKG EKG [] Radiology/Procedures Radiology/Procedures []PROCEDURE: HAND RIGHT 3V Examination: HAND RIGHT 3V History: PUNCHED GLASS BOOK CASE. MULTIPLE LACERATIONS Comparison/Correlation: 11/28/2016 right hand 3 view x-ray exam Findings: Total 3 images of the right hand were obtained by portable technique. Bony structures are intact. No fracture or bony destruction. Soft tissue swelling about the third digit proximal phalanx is noted particularly at the lateral aspect. Punctate linear density on the PA view is present in this region of soft tissue but may be artifactual. Possibility of foreign body is not entirely excluded. Impression: Soft tissue swelling at the medial aspect of the third digit proximal interphalangeal joint. Punctate linear density may be artifactual or may represent a punctate radiopaque foreign body. Electronically signed by: Pearl Roblero MD (11/14/2018 9:41 PM) [facility] DICTATED and SIGNED BY: PEARL ROBLERO MD DATE: 11/14/182140 Course & Med Decision Making Course & Med Decision Making Pertinent Labs and Imaging studies reviewed. (See chart for details) This is a 28-year-old female patient presenting to the ED today with right hand injury after punching a mirror at 2 am this morning. Right hand x-rays interpreted by radiologist were negative for any acute findings, noted for possible radiopaque object or artifact. Right hand was cleaned thoroughly in the emergency room by me. Neosporin applied to the areas. Areas were covered with nonstick dressing. Patient was discharged on cephalexin and instructed to follow-up with her own PCP in 1-2 weeks. Provided return precautions. Tetanus up-to-date Dragon Disclaimer Dragon Disclaimer This electronic medical record was generated, in whole or in part, using a voice recognition dictation system. Departure Departure Impression: Primary Impression: Contusion of right hand Additional Impression: Laceration of right hand Disposition: 01 HOME, SELF-CARE Condition: STABLE Referrals: NO PCP (PCP) follow up with your doctor in 1-2 weeks Patient Instructions: Contusion, [id number], Laceration Care, Adult Additional Instructions: You were evaluated in the emergency room for right hand contusion, ice elevate the extremity. Please apply Neosporin to the laceration sites twice a day. Please keep the areas clean and dry. Please complete your prescribed ant ibiotics. Please follow-up with your own doctor in 1-2 weeks, please come back to the ED at any point symptoms/wound condition worsen Scripts Hydrocodone/Apap 5-325 (NORCO 5-325 TABLET) 1 Each Tablet 1 TAB PO Q6HRS, #8 TAB Prov: KARLI RODRIGUEZ APRN 11/14/18 Cephalexin (CEPHALEXIN) 500 Mg Tablet 1 TAB PO QID, #40 TAB Prov: KARLI RODRIGUEZ APRN 11/14/18 Problem Qualifiers Primary Impression: Contusion of right hand Encounter type: initial encounter Qualified Codes: S60.221A - Contusion of right hand, initial encounter Additional Impression: Laceration of right hand Encounter type: initial encounter Foreign body presence: without foreign body Qualified Codes: S61.411A - Laceration without foreign body of right hand, initial encounter KARLI RODRIGUEZ APRN Nov 14, 2018 23:03
== END 2018-11-14 23:10 | disposition home or self-care (01) ==
LOC: ER 20:03
DX: S61.411A Laceration without foreign body of right hand, initial encounter (principal); F32.9 Major depressive disorder, single episode, unspecified; W22.8XXA Striking against or struck by other objects, initial encounter; Y93.89 Activity, other specified; Y92.89 Other specified places as the place of occurrence of the external cause; Y99.8 Other external cause status
CPT/HCPCS: 73130; 99284

== ENCOUNTER 2018-12-17 20:00 | Emergency (ER) | payer SELFPAY ==
[~2018-12-17] VITALS: Ht 170.2 cm; Wt 72.6 kg
[~2018-12-17 20:00] MED LIST changes: +CEPH500T PO
[2018-12-17 20:18] VITALS: BP 122/58
--- NOTE | 2018-12-17 20:44 | PHYS DOC ---
Past Medical History Past Medical History: Depression, Other Additional Past Medical Histor: PTSD (PHILLIP AMOR APRN) Past Surgical History: Other Additional Past Surgical Histo: finger surgery (PHILLIP AMOR APRN) Alcohol Use: Occasionally Drug Use: None (PHILLIP AMOR APRN) Adult General Chief Complaint Chief Complaint: FINGER INJURY [facility] HPI Patient is a 28 year old female who presents with right hand middle finger pain and swelling. Patient reports personal month ago she had punching year, had an injury to her right middle finger, with a laceration between her fourth and fifth digit on her right hand. Reports she was told that there was no fracture after her x-ray, but still believes there is something in there or it is broken. Reports that her finger has been swollen, tender, with decreased range of motion ever since that injury. States today she was at work, she hit a box, and her finger surgery to have some purulence, increased swelling, increased pain. Does report she was given antibiotics after her laceration, which she didn't take. (PHILLIP AMOR APRN) Review of Systems Review of Systems Constitutional: Denies fever or chills [] Eyes: Denies change in visual acuity, redness, or eye pain [] HENT: Denies nasal congestion or sore throat [] Respiratory: Denies cough or shortness of breath [] Cardiovascular: No additional information not addressed in HPI [] GI: Denies abdominal pain, nausea, vomiting, bloody stools or diarrhea [] : Denies dysuria or hematuria [] Musculoskeletal: Denies back pain. Complains of pain to right middle finger joint, decreased range of motion. [] Integument: Denies rash or skin lesions reports some pus from her digit. [] Neurologic: Denies headache, focal weakness or sensory changes [] Endocrine: Denies polyuria or polydipsia [] All other systems were reviewed and found to be within normal limits, except as documented in this note. (PHILLIP AMOR APRN) Current Medications Current Medications Current Medications Medications (Trade) Dose Ordered Sig/Natanael Start Time Stop Time Status Last Admin Dose Admin Acetaminophen/ Hydrocodone Bitart (Lortab 5/325) 1 tab 1X ONCE 12/17/18 21:15 12/17/18 21:16 DC 12/17/18 21:02 1 TAB (ALEXANDRIA SOLANO DO) Allergies Allergies Allergies Coded Allergies Type Severity Reaction Last Updated Verified No Known Drug Allergies 02/06/14 No (ALEXANDRIA SOLANO DO) Physical Exam Physical Exam Constitutional: Well developed, well nourished, no acute distress, non-toxic appearance. [] HENT: Normocephalic, atraumatic, bilateral external ears normal, oropharynx moist, no oral exudates, nose normal. [] Eyes: PERRLA, EOMI, conjunctiva normal, no discharge. [] Neck: Normal range of motion, no tenderness, supple, no stridor. [] Cardiovascular:Heart rate regular rhythm, no murmur [] Lungs & Thorax: Bilateral breath sounds clear to auscultation [] Abdomen: Bowel sounds normal, soft, no tenderness, no masses, no pulsatile masses. [] Skin: Warm, dry, no erythema, no rash right middle finger PIP joints noted swollen, erythematous, abraham purulence noted, healing lesion noted between fourth and fifth digit, onto midposterior hand. [] Back: No tenderness, no CVA tenderness. [] Extremities: No tenderness, no cyanosis, no clubbing, ROM intact, no edema. decreased ROM to digit [] Neurologic: Alert and oriented X 3, normal motor function, normal sensory function, no focal deficits noted. [] Psychologic: Affect normal, judgement normal, mood normal. [] (PHILLIP AMOR APRN) Current Patient Data Vital Signs Vital Signs Date Time Temp Pulse Resp B/P (MAP) Pulse Ox O2 Delivery O2 Flow Rate FiO2 12/17/18 21:02 16 96 Room Air 12/17/18 20:18 97.8 84 122/58 (79) 97.8 (ALEXANDRIA SOLANO DO) EKG EKG [] (PHILLIP AMOR APRN) Radiology/Procedures Radiology/Procedures No acute fracture, foreign bodies, or dislocation noted per Dr Solano @2044[] (PHILLIP AMOR APRN) Course & Med Decision Making Course & Med Decision Making Discussed findings with patient, discussed no fracture, discussed swelling digit due to infection. Again offer incision and drainage of patient, patient says she does not think she can graded at home. Advised patient reporting to take antibiotics as prescribed, as antibiotics will help her infection. Reports that she did not finish her complete course of suspected Keflex on her last visit. Reports she has lost her medicines. Discussed with patient importance of taking entire course. Discussed following up with primary care provider clinic, discussed hand hygiene, discussed keeping wound clean. [] (PHILLIP AMOR APRN) Dragon Disclaimer Dragon Disclaimer This electronic medical record was generated, in whole or in part, using a voice recognition dictation system. (PHILLIP AMOR APRN) Departure Departure Impression: Primary Impression: Cellulitis and abscess of finger, unspecified Disposition: HOME, SELF-CARE Condition: GOOD Referrals: NO PCP (PCP) Patient Instructions: Cellulitis, [id number] Additional Instructions: As we discussed make sure you take the entire amount of antibiotics. There was no fracture noted in urine finger. There was no foreign body or glass noted in the digit. He may take Tylenol or ibuprofen for the discomfort. He can use a warm compress on there which will help make the purulent area softer and more able to squeeze and draining. Keep your fingers clean. Wash your hands with soap and water. Scripts Sulfamethoxazole/Trimethoprim (BACTRIM DS TABLET) 1 Each Tablet 1 TAB PO BID, #20 TAB Prov: PHILLIP AMOR APRN 12/17/18 Attending Signature Attending Signature I have reviewed the PA/ASSET PROTECTION PROFESSIONAL's note and plan of care. I was available for consultation as needed during the patient's visit in the emergency department. I agree with the clinical impression, plan, and disposition. (ALEXANDRIA SOLANO DO) PHILLIP AMOR APRN December 17, 2018 20:44 ALEXANDRIA SOLANO DO Dec 22, 2018 06:42
[2018-12-17] MEDS ORDERED: HYDROcodone/APAP 5/325MG 1 TAB TABLET PO ONE (21:15)
[2018-12-17] MEDS ORDERED: SULF1TAB24 PO (21:19)
--- NOTE | 2018-12-18 00:06 | RAD ---
Three-view right hand radiographs 12/17/2018 CLINICAL HISTORY: Injury to the right hand. PA, lateral and oblique digital radiographs of the right hand were obtained. No fracture or dislocation right hand is seen. No radiopaque foreign body is noted. IMPRESSION: No fracture or dislocation of the right hand is seen. Electronically signed by: Crispin De Paz MD (12/18/2018 12:03 AM) [facility]
== END 2018-12-17 21:28 | disposition home or self-care (01) ==
LOC: ER 20:00
DX: L03.011 Cellulitis of right finger (principal); L02.511 Cutaneous abscess of right hand; F32.9 Major depressive disorder, single episode, unspecified
CPT/HCPCS: 73130; 99284